=== PATIENT | male | born 1965 | race Caucasian/White ===

== ENCOUNTER 2020-05-15 08:33 | Outpatient (CLI) | payer OTHER, SELFPAY | END 2020-05-15 08:34 | disposition home or self-care (01) | LOC: ANHCOVIDVC 08:33 | PROVIDERS: PCP Family Medicine | DX: Z23 Encounter for immunization (principal) | CPT/HCPCS: 0001A; 91300 ==

== ENCOUNTER 2020-06-05 08:35 | Outpatient (CLI) | payer OTHER, SELFPAY | END 2020-06-05 08:36 | disposition home or self-care (01) | LOC: ANHCOVIDVC 08:35 | PROVIDERS: PCP Family Medicine | DX: Z23 Encounter for immunization (principal) | CPT/HCPCS: 0002A; 91300 ==

== ENCOUNTER 2020-07-18 15:11 | Outpatient (CLI) | payer OTHER, SELFPAY ==
--- NOTE | ~2020-07-18 | XR_ITS ---
XR abdomen/kub 1V DATE: 07/18/2020 15:41 INDICATION: Generalized abdominal TECHNIQUE: AP projection, 2 views COMPARISON: None FINDINGS: The psoas shadows are intact. No visceromegaly is evident. No significant abnormal calcific ation is noted. No evidence of bowel obstruction. IMPRESSION: Nonspecific abdomen Reviewed, dictated and finalized at [facility]. Reviewed, dictated and finalized at [facility]. IMPRESSION: Nonspecific abdomen
== END 2020-07-18 15:12 | disposition home or self-care (01) ==
PROVIDERS: PCP Family Medicine; Visit Provider Nurse Practitioner Family
DX: R10.9 Unspecified abdominal pain (principal)
CPT/HCPCS: 74018

== ENCOUNTER 2020-08-05 09:09 | Outpatient (CLI) | payer OTHER, SELFPAY ==
--- NOTE | ~2020-08-05 | US_ITS ---
EXAMINATION: US abdomen complete EXAM DATE: 08/05/2020 09:45 INDICATION: R10.9 - Unspecified abdominal pain. TECHNIQUE: Multiple grayscale and Doppler images of the complete abdomen were obtained (by a technolo gist who performed the scan) and subsequently reviewed. There is no prior study for comparison. FINDINGS: The abdominal aorta is normal in caliber. Visualized portion IVC is patent. The pancreatic head a nd body are normal in appearance. The pancreatic tail is not visualized. The liver has normal echogenicity and contour. There are no focal liver lesions identified. There is no evidence of intrahepatic biliary duct dilation. Portal venous flow was seen in the hepatopedal , normal direction and has normal Doppler waveform. Common bile duct measures 3 mm, which is normal. The gallbladder wall is normal in thickness, with ex pected amount of distention. No sonographic evidence of pericholecystic fluid. There is no cholelit hiases. Technologist performing exam reports patient did not demonstrate sonographic Maza's sign. Please note that this sign is less reliable in patients who have received pain medication. Right kidney: There is normal contour and echogenicity. It measures 10.1 x 4.6 x 5.0 centimeters. There are no focal renal lesions identified. There is no hydronephrosis. Left kidney: There is normal contour and echogenicity. It measures 10.1 x 5.1 x 4.5 centimeters. T here are no focal renal lesions identified. There is no hydronephrosis. The spleen measures 12 centimeters and is morphologically normal. IMPRESSION: 1. Unremarkable complete abdominal ultrasound exam. Reviewed, dictated and finalized at [facility].
== END 2020-08-05 09:10 | disposition home or self-care (01) ==
PROVIDERS: PCP Family Medicine; Visit Provider Nurse Practitioner Family
DX: R10.9 Unspecified abdominal pain (principal)
CPT/HCPCS: 76700

== ENCOUNTER → 2020-09-04 08:07 | Outpatient (CLI) | payer OTHER, SELFPAY ==
--- NOTE | ~2020-09-04 | CT_ITS ---
EXAMINATION: CT abdomen pelvis w con DATE: 09/04/2020 08:43 INDICATION: Low back pain. Right lower quadrant abdominal pain. TECHNIQUE: Computed tomography (CT) of the abdomen and pelvis was performed with 100 mL Omnipaque-350 intravenous contrast. Automated exposure control and iterative reconstruction technique were employe d. The dose-length product was 939.62 mGy-cm. COMPARISON: None FINDINGS: Mild dependent and basilar atelectasis in the lower lung zones. Calcified nodules in the right lower lobe along with calcified right hilar lymph nodes and a couple small splenic calcification, all consi stent with old granulomatous disease. Heart size is normal. No pericardial or pleural effusion. Perip heral puddling of contrast at a 2 cm centrally hypodense hemangioma in the right hepatic lobe. Gallbl adder, pancreas, bilateral adrenal glands and kidneys are normal. Normal appendix. There are a few sc attered diverticula along the descending and sigmoid colon without adjacent from 3 change to suggest diverticulitis. There is mild wall thickening along the terminal ileum without surrounding inflammato ry stranding and with relatively low density favoring fatty infiltration which can be seen in the set ting of chronic inflammation such as Crohn's disease. Bladder is normal. No free intraperitoneal gas or fluid. No pathologically enlarged abdominal or pelvic lymphadenopathy. Mild scattered degenerative skeletal changes. IMPRESSION: 1. Mild wall thickening with suggestion of fatty infiltration at the terminal ileum without surroundi ng from trace stranding which suggests sequela chronic inflammation such as in the setting of Crohn's disease. Correlate with clinical history. 2. Normal gallbladder and appendix. Reviewed, dictated and finalized at location [facility]. IMPRESSION: 1. Mild wall thickening with suggestion of fatty infiltration at the terminal i leum without surrounding from trace stranding which suggests sequela chronic in flammation such as in the setting of Crohn's disease. Correlate with clinical h istory. 2. Normal gallbladder and appendix.
[2020-09-04 08:30] LABS: Estimated Glomerular Filt Rate 58
== END ==
PROVIDERS: PCP Family Medicine; Visit Provider Family Medicine
DX: R10.31 Right lower quadrant pain (principal); G89.29 Other chronic pain; M54.5 Low back pain
CPT/HCPCS: 74177; Q9967

== ENCOUNTER 2021-02-26 01:04 | Day surgery (SDC) | payer OTHER, SELFPAY ==
[2021-02-16 16:07] VITALS: BMI 30.4
--- NOTE | 2021-02-25 17:25 | PM.HPGS ---
History of Present Illness History of Present Illness Consent: Risks, benefits, and alternatives have been discussed and questions answered. Patient agrees to proceed with procedure. Chief complaint: RLQP, Abnormal CAT scan Narrative: Ryan Noel is a 55 year old male who recently had a CT scan that showed possible Crohn's disease in the terminal ileum. This was done earlier this year when he was having pains in his back and flanks. More recently he had pain in the left lower quadrant and was given antibiotics for suspected colon infection. He has noticed that his stools have been loose for the past several months but he has had no weight loss. He does not have any pain in the right lower quadrant Review of Systems Review of Systems: All systems reviewed & are unremarkable except as noted in HPI and below PMFSH Past Medical History Medical History BMI greater than 30 Essential (primary) hypertension Low back pain Mixed hyperlipidemia Performance anxiety Surgical History Surgical History H/O tooth extraction Family History Family History Father Heart disease Mother Acute myocardial infarction Haematoma of brain Sibling No problems noted. 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[employer] Gender identity (if verbalized by the patient): Male Spiritual care concerns: No Meds Home Medications and Allergies Home Medications Medication Instructions Recorded Confirmed Type montelukast 10 mg tablet 10 mg PO DAILY #90 tablet 10/05/20 02/26/21 Rx metoprolol succinate 25 mg 25 mg PO DAILY #90 tablet 11/17/20 02/26/21 Rx tablet,extended release 24 hr rosuvastatin 20 mg tablet 20 mg PO DAILY #90 tablet 11/30/20 02/26/21 Rx cetirizine 10 mg tablet 10 mg PO DAILY #30 tablet 02/06/21 02/26/21 Rx alprazolam 0.5 mg PO ONCE PRN 02/16/21 02/26/21 History Allergies Allergy/AdvReac Type Severity Reaction Status Date / Time No Known Allergies Allergy Verified 02/26/21 09:40 Exam Resp: Auscultation: clear to auscultation bilaterally Cardio: Rate: regular rate Rhythm: regular rhythm GI: GI Palp: Yes Soft to palpation and No Tenderness to palpation present (GI) Assessment and Plan Assessment and plan (1) Abnormal CT scan, gastrointestinal tract: Code(s): R93.3 - Abnormal findings on diagnostic imaging of other parts of digestive tract Status: Acute Assessment and Plan: Colonoscopy with possible biopsy or polypectomy or cautery or injection of substances.
[2021-02-26 09:43] VITALS: BP 138/103; PULSE 92; RESP 16; TEMP 36.3; O2SAT 99; BMI 30.2
[2021-02-26] MEDS: LACTATED RINGERS 1,000 ML 150 ML IV CONT (09:45)
--- NOTE | 2021-02-26 10:01 | P.PNAN_ITS ---
Anes - Initial Pre Proc Eval Procedure: Operation Date: 02/26/21 11:00 Proposed Procedures p Colonoscopy - George Troncoso MD Date/Time: 02/26/21 10:01 Surgeon: Goerge Troncoso MD Pre Op Diagnosis: RLQP, Abnormal CAT scan Patient Data Age: 55 Gender: M Height: 1.73 m Weight: 90.1 kg Last Vital Signs Temp 36.3 C L 02/26/21 09:43 Pulse 92 02/26/21 09:43 Resp 16 02/26/21 09:43 BP 138/103 H 02/26/21 09:43 Pulse Ox 99 02/26/21 09:43 Allergies Allergy/AdvReac Type Severity Reaction Status Date / Time No Known Allergies Allergy Verified 02/26/21 09:40 Home Medications Medication Instructions Recorded Confirmed Type montelukast 10 mg tablet 10 mg PO DAILY #90 tablet 10/05/20 02/26/21 Rx metoprolol succinate 25 mg 25 mg PO DAILY #90 tablet 11/17/20 02/26/21 Rx tablet,extended release 24 hr rosuvastatin 20 mg tablet 20 mg PO DAILY #90 tablet 11/30/20 02/26/21 Rx cetirizine 10 mg tablet 10 mg PO DAILY #30 tablet 02/06/21 02/26/21 Rx alprazolam 0.5 mg PO ONCE PRN 02/16/21 02/26/21 History Patient hx anesthesia problems: none Family hx anesthesia problems: none Results Review: All pre-operative results and documents have been reviewed as part of the pre-operative evaluation. [facility] Past Medical History Medical History BMI greater than 30 Essential (primary) hypertension Low back pain Mixed hyperlipidemia Performance anxiety Surgical History Surgical History H/O tooth extraction Family History Family History Father Heart disease Mother Acute myocardial infarction Haematoma of brain Sibling No problems noted. 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 Informed Consent: The patient's anesthetic plan and its attendant risks and benefits were discussed with the patient/family/POA. Questions were solicited and answers provided to the satisfaction of the patient/family/POA.
[2021-02-26] MEDS: SIMETHICONE ORAL SUSPENSION 20 MG/0.3 ML 30 ML BOTTLE 0.6 ML IRRIGATION (10:21)
[2021-02-26 10:31] VITALS: BP 115/77; PULSE 90; RESP 14; O2SAT 96
[2021-02-26 10:41] VITALS: BP 116/83; PULSE 81; RESP 14; O2SAT 98
[2021-02-26 10:51] VITALS: BP 133/92; PULSE 84; RESP 20; O2SAT 100
== END 2021-02-26 11:03 | disposition home or self-care (01) ==
PROVIDERS: PCP Family Medicine; Visit Provider Internal Medicine Gastroenterology
PROC: 0DJD8ZZ Inspection of Lower Intestinal Tract, Via Natural or Artificial Opening Endoscopic (ICD-10-PCS; CPT 45378; principal; 2021-02-26 11:00)
DX: R93.3 Abnormal findings on diagnostic imaging of other parts of digestive tract (principal); I10 Essential (primary) hypertension; E78.2 Mixed hyperlipidemia
CPT/HCPCS: 45380; 88305; J2001; J2704; J7120

== ENCOUNTER 2021-07-27 00:46 | Day surgery (SDC) | payer OTHER, SELFPAY ==
[2021-07-16 09:40] VITALS: BMI 30.4
--- NOTE | 2021-07-25 10:04 | P.HP_ITS ---
History of Present Illness History of Present Illness Consent: Risks, benefits, and alternatives have been discussed and questions answered. Patient agrees to proceed with procedure. Chief complaint: RUQP Narrative: Ryan Noel is a 56 year old male Who has had indigestion and nausea for the past several weeks. He also has had upper abdominal pain Review of Systems Review of Systems: All systems reviewed & are unremarkable except as noted in HPI and below PMFSH Past Medical History Medical History Blood blister BMI greater than 30 Essential (primary) hypertension Low back pain Mixed hyperlipidemia Nightmares Performance anxiety Surgical History Surgical History H/O tooth extraction Family History Family History Father Heart disease Mother Acute myocardial infarction Haematoma of brain Sibling No problems noted. 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[employer] Gender identity (if verbalized by the patient): Male Spiritual care concerns: No Meds Home Medications and Allergies Home Medications Medication Instructions Recorded Confirmed Type alprazolam 0.5 mg tablet 0.5 mg PO TID PRN #30 tablet 05/07/21 07/16/21 Rx cetirizine 10 mg tablet 10 mg PO DAILY #30 tablet 05/11/21 07/16/21 Rx metoprolol succinate 25 mg 25 mg PO DAILY #90 tablet 05/24/21 07/16/21 Rx tablet,extended release 24 hr rosuvastatin 20 mg tablet 20 mg PO DAILY #90 tablet 05/24/21 07/16/21 Rx loperamide [Imodium] 2 mg PO Q6H PRN 07/16/21 07/16/21 History Allergies Allergy/AdvReac Type Severity Reaction Status Date / Time montelukast [From Singulair] AdvReac Severe Nightmare Verified 07/27/21 10:50 Exam Const: General: alert Orientation/consciousness: patient oriented x3 Resp: Auscultation: clear to auscultation bilaterally Cardio: Rhythm: regular rhythm GI: GI Palp: Yes Soft to palpation and No Tenderness to palpation present (GI) Neuro: General: patient oriented x3 Assessment and Plan Assessment and plan (1) Epigastric pain: Code(s): R10.13 - Epigastric pain Status: Acute Assessment and Plan: EGD with possible biopsy or dilatation or cautery.
--- NOTE | 2021-07-27 07:40 | WPDANESEPPF ---
Anes - Initial Pre Proc Eval Procedure: Operation Date: 07/27/21 12:30 Proposed Procedures p Esophagogastroduodenoscopy - George Troncoso MD Date/Time: 07/27/21 07:40 Surgeon: George Troncoso MD Pre Op Diagnosis: RUQP Patient Data Age: 56 Gender: M Height: 1.73 m Weight: 91 kg Allergies Allergy/AdvReac Type Severity Reaction Status Date / Time montelukast [From Singulair] AdvReac Severe Nightmare Verified 07/27/21 10:50 Home Medications Medication Instructions Recorded Confirmed Type alprazolam 0.5 mg tablet 0.5 mg PO TID PRN #30 tablet 05/07/21 07/16/21 Rx cetirizine 10 mg tablet 10 mg PO DAILY #30 tablet 05/11/21 07/16/21 Rx metoprolol succinate 25 mg 25 mg PO DAILY #90 tablet 05/24/21 07/16/21 Rx tablet,extended release 24 hr rosuvastatin 20 mg tablet 20 mg PO DAILY #90 tablet 05/24/21 07/16/21 Rx loperamide [Imodium] 2 mg PO Q6H PRN 07/16/21 07/16/21 History Patient hx anesthesia problems: none Family hx anesthesia problems: none Results Review: All pre-operative results and documents have been reviewed as part of the pre-operative evaluation. [facility] Past Medical History Medical History (Updated 07/25/21 @ 10:05 by George Troncoso MD) Blood blister BMI greater than 30 Essential (primary) hypertension Low back pain Mixed hyperlipidemia Nightmares Performance anxiety Surgical History Surgical History H/O tooth extraction Family History Family History Father Heart disease Mother Acute myocardial infarction Haematoma of brain Sibling No problems noted. 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[employer] Gender identity (if verbalized by the patient): Male Spiritual care concerns: No Anes - Eval Final PreProcedure Day of Procedure 07/27/21 07:40 Patient weight: obese Heart: regular rate and rhythm Lungs: clear to auscultation and normal air movement Airway: Mallampati scale class II Neurological: alert and oriented Last oral intake: >/= 8 hours ASA classification: III Emergent: no Anesthetic plan: proceed Anesthesia type and monitoring: general GIVS and standard monitoring Results Review: All pre-operative results and documents have been reviewed as part of the pre-operative evaluation. Informed Consent: The patient's anesthetic plan and its attendant risks and benefits were discussed with the patient/family/POA. Questions were solicited and answers provided to the satisfaction of the patient/family/POA.
[2021-07-27 10:51] VITALS: BP 157/94; PULSE 68; RESP 20; TEMP 36.7; O2SAT 99
[2021-07-27] MEDS: LACTATED RINGERS 1,000 ML 150 ML IV CONT (11:02)
[2021-07-27 11:47] VITALS: BP 105/76; PULSE 69; RESP 20; O2SAT 100
[2021-07-27 11:57] VITALS: BP 123/93; PULSE 58; RESP 20; O2SAT 98
[2021-07-27 12:07] VITALS: BP 132/92; PULSE 61; RESP 20; O2SAT 98
== END 2021-07-27 12:09 | disposition home or self-care (01) ==
PROVIDERS: PCP Family Medicine; Visit Provider Internal Medicine Gastroenterology
PROC: 0DJ08ZZ Inspection of Upper Intestinal Tract, Via Natural or Artificial Opening Endoscopic (ICD-10-PCS; CPT 43235; principal; 2021-07-27 12:30)
DX: K21.00 Gastro-esophageal reflux disease with esophagitis, without bleeding (principal); K31.9 Disease of stomach and duodenum, unspecified; I10 Essential (primary) hypertension; E78.2 Mixed hyperlipidemia; E66.9 Obesity, unspecified; Z68.31 Body mass index [BMI] 31.0-31.9, adult
CPT/HCPCS: 43239; 87081; 88305; J2704; J7120

== ENCOUNTER → 2022-08-13 12:04 | Outpatient (CLI) | payer OTHER, SELFPAY | PROVIDERS: PCP Family Medicine; Visit Provider Nurse Practitioner Family | DX: M25.561 Pain in right knee (principal) | CPT/HCPCS: 73564 ==